=== PATIENT | female | born 1985 | race Hispanic/Latino ===

== ENCOUNTER 2018-01-03 17:49 | Emergency (ER) | payer SELFPAY ==
[2018-01-03] MEDS ORDERED: DICYCLOMINE HCL 10 MG CAP ONE (18:47)
[2018-01-03] MEDS ORDERED: FAMOTIDINE 20 MG/2 ML VIAL IV ONE (18:47)
[2018-01-03] MEDS ORDERED: ONDANSETRON 4 MG/2 ML VIAL ONE (18:47)
[2018-01-03] MEDS ORDERED: NA CHLORIDE 0.9% 1,000 ML ONE (18:48)
[2018-01-03 18:56] LABS: Absolute Lymphocytes (CBC) 0.5 K/uL (0.7-4.9); Absolute Monocytes 0.3 K/uL (0.1-1.3); Absolute Neutrophil 8.2 K/uL (1.8-8.0); Basophils % 0.2 % (0-1.3); Eosinophils % 0.2 % (0-4.4); Hematocrit 40.5 % (36.0-45.0); Lymphocytes % 5.5 % (15.3-44.8); MCH 31.1 pg (27.0-35.0); MCV 90.2 fL (80-100); MPV 7.9 fL (7.6-11.3); Monocytes % 3.8 % (3.3-12.3)
[2018-01-03 19:25] LABS: ALT/SGPT 63 U/L (12-78); AST/SGOT 40 U/L (15-37); Alkaline Phosphatase 113 U/L (45-117); BUN Blood Urea Nitrogen 15 mg/dL (7-18); Bicarbonate 27 mmol/L (21-32); Bilirubin Direct 0.3 mg/dL (0-0.2); Bilirubin Total 1.2 mg/dL (0.2-1.0); Glucose Level 103 mg/dL (74-106); Lipase 121 U/L (73-393); Protein, Total 7.9 g/dL (6.4-8.2); Sodium Level 138 mmol/L (136-145)
[2018-01-03 19:55] LABS: Urine Blood TRACE (NEG); Urine Glucose NEGATIVE (NEG); Urine Protein NEGATIVE (NEG); Urine Specific Gravity 1.025 (1.005-1.030)
[2018-01-03 20:41] LABS: Platelet Estimate ADEQ; Urine White Blood Cell Casts OK
[2018-01-03 20:42] LABS: Blood Morphology Comment NOT SEEN (NOT SEEN)
--- NOTE | 2018-01-03 21:34 | RAD REPORT ---
EXAM DESCRIPTION: US - Abdomen Exam Limited - 01/03/2018 9:15 pm CLINICAL HISTORY: Abdominal pain. COMPARISON: None. FINDINGS: The gallbladder wall is not thickened. A gallstone is not seen. The biliary tree is normal caliber. IMPRESSION: Unremarkable gallbladder ultrasound.
--- NOTE | 2018-01-03 21:51 | EDPHYS ---
Physician Documentation [facility] Name: Suni Rubin Age: 32 yrs Sex: Female : 1985 Arrival Date: 01/03/2018 Time: 17:51 Bed 30 Private MD: None, None ED Physician Grayson Mccloud HPI: 01/03 18:10 This 32 yrs old Female presents to ER via Ambulatory with complaints of cp Abdominal Pain, Vomiting/Diarrhea. 18:10 The patient presents with abdominal pain. Onset: The symptoms/episode began/occurred cp today. Associated signs and symptoms: Pertinent positives: nausea and vomiting, anorexia, diarrhea, fever, Pertinent negatives: blood in stools, constipation. 18:10 Severity of pain: in the emergency department the pain is unchanged despite home cp interventions. 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 - Social history:: Smoking status: Patient/guardian denies using tobacco. - Ebola Screening: : Patient negative for fever greater than or equal to 101.5 degrees Fahrenheit, and additional compatible Ebola Virus Disease symptoms Patient denies exposure to infectious person Patient denies travel to an Ebola-affected area in the 21 days before illness onset No symptoms or risks identified at this time. ROS: 18:25 Constitutional: Negative for body aches, chills, fever. cp 18:25 Eyes: Negative for injury, pain, redness, and discharge. cp 18:25 ENT: Negative for drainage from ear(s), ear pain, sore throat, difficulty swallowing, difficulty handling secretions. 18:25 Cardiovascular: Negative for chest pain, edema, palpitations. 18:25 Respiratory: Negative for cough, shortness of breath, wheezing. 18:25 Abdomen/GI: Positive for abdominal pain, nausea and vomiting, diarrhea, Negative for constipation, black/tarry stool, rectal bleeding. 18:25 Back: Negative for radiated pain. 18:25 : Negative for urinary symptoms. 18:25 All other systems are negative. Exam: 18:30 Constitutional: The patient appears in no acute distress, alert, awake, non-toxic, well cp developed, well nourished, uncomfortable. 18:30 Head/Face: Normocephalic, atraumatic. Eyes: Pupils equal round and reactive to light, cp extra-ocular motions intact. Lids and lashes normal. Conjunctiva and sclera are non-icteric and not injected. Cornea within normal limits. Periorbital areas with no swelling, redness, or edema. ENT: Nares patent. No nasal discharge, no septal abnormalities noted. Tympanic membranes are normal and external auditory canals are clear. Oropharynx with no redness, swelling, or masses, exudates, or evidence of obstruction, uvula midline. Mucous membranes moist. Chest/axilla: Normal chest wall appearance and motion. Nontender with no deformity. No lesions are appreciated. 18:30 Cardiovascular: Rate: normal, Rhythm: regular. 18:30 Respiratory: the patient does not display signs of respiratory distress, Respirations: normal, no use of accessory muscles, no retractions, no splinting, no tachypnea, Breath sounds: are clear throughout, no decreased breath sounds, no stridor, no wheezing. 18:30 Abdomen/GI: Inspection: abdomen appears normal, Bowel sounds: active, all quadrants, Palpation: soft, in all quadrants, mild abdominal tenderness, in all quadrants, rebound tenderness, is not appreciated, involuntary guarding, is not appreciated. 18:30 Back: pain, is absent, ROM is normal. 18:30 Skin: cellulitis, is not appreciated, no rash present. 18:30 Neuro: Orientation: to person, place \T\ time. Mentation: is normal, Cerebellar function: is grossly normal, Motor: is normal, Sensation: is normal. Vital Signs: 17:53 BP 104 / 68; Pulse 96; Resp 17; Temp 98.9; Pulse Ox 100% on R/A; Weight 83.91 kg; aj Height 5 ft. 5 in. (165.10 cm); 19:46 BP 102 / 47; Pulse 89 RA; Pulse Ox 100% on R/A; rv 20:22 BP 102 / 88; Pulse 79; Resp 18; Pulse Ox 100% on R/A; tl3 20:56 BP 112 / 73; rv 21:59 BP 124 / 70; Pulse 88; Pulse Ox 100% on R/A; rv 17:53 Body Mass Index 30.79 (83.91 kg, 165.10 cm) aj MDM: 17:57 Patient medically screened. cp 21:49 Data reviewed: vital signs, nurses notes, lab test result(s), radiologic studies, cp ultrasound. Response to treatment: the patient's symptoms have markedly improved after treatment, VSS. Patient reports nausea and pain improved. Will discharge to home for continued monitoring. 01/03 18:08 Order name: Basic Metabolic Panel; Complete Time: 20:35 cp 01/03 18:08 Order name: CBC with Diff; Complete Time: 20:44 cp 01/03 20:45 Interpretation: Normal except: NIMCO% 90.3; LYM% 5.5; NEUT A 8.2. cp 01/03 18:08 Order name: Creatinine for Radiology; Complete Time: 20:35 cp 01/03 18:08 Order name: Hepatic Function; Complete Time: 20:35 cp 01/03 18:08 Order name: Lipase; Complete Time: 20:35 cp 01/03 18:31 Order name: Urine Dipstick--Ancillary (enter results); Complete Time: 20:35 eb 01/03 18:08 Order name: IV Saline Lock; Complete Time: 18:38 cp 01/03 18:31 Order name: Urine --Ancillary (enter results); Complete Time: 20:35 eb 01/03 19:11 Order name: CBC Smear Scan; Complete Time: 20:44 EDMS 01/03 20:36 Order name: US Abdomen Limited: RUQ/epigastric area; Complete Time: 21:42 cp 01/03 18:08 Order name: Labs collected and sent; Complete Time: 18:38 cp 01/03 18:08 Order name: Urine Dipstick-Ancillary (obtain specimen); Complete Time: 18:37 cp 01/03 18:08 Order name: Urine Test (obtain specimen); Complete Time: 18:37 cp 01/03 21:42 Order name: PO challenge; Complete Time: 21:59 cp Administered Medications: 18:51 Drug: Pepcid 20 mg Route: IVP; Infused Over: 2 mins; Site: right antecubital; tl3 21:59 Follow up: Response: No adverse reaction rv 18:52 Drug: NS 0.9% 1000 ml Route: IV; Rate: 1 bolus; Site: right antecubital; Delivery: tl3 Primary tubing; 22:00 Follow up: IV Status: Completed infusion rv 18:52 Drug: Bentyl 20 mg Route: PO; tl3 22:00 Follow up: Response: No adverse reaction rv 18:52 Drug: Zofran 4 mg Route: IVP; Infused Over: 2 mins; Site: right antecubital; tl3 21:59 Follow up: Response: No adverse reaction rv Disposition: 01/03/18 21:50 Discharged to Home. Impression: Nausea and vomiting, Diarrhea, unspecified. - Condition is Stable. - Discharge Instructions: Food Choices to Help Relieve Diarrhea, Adult, Diarrhea, Adult, Nausea and Vomiting, Adult. - Prescriptions for Bentyl 20 mg Oral Tablet - take 1 tablet by ORAL route every 6 hours As needed; 20 tablet. Zofran 4 mg Oral Tablet - take 1 tablet by ORAL route every 12 hours As needed; 20 tablet. - Medication Reconciliation Form, Thank You Letter, Antibiotic Education, Prescription Opioid Use, Work release form form. - Follow up: Private Physician; When: 2 - 3 days; Reason: Recheck today's complaints. - Problem is new. - Symptoms have improved. Addendum: 01/09/2018 07:46 Co-signature as Attending Physician, Grayson Mccloud MD. r n Signatures: Dispatcher [employer] Andreea Madrigal RN Grayson Zamora MD MD rn Page, Corey, PA PA cp Humaira Dean RN RN tl3 Elias Carvajal RN RN rv Corrections: (The following items were deleted from the chart) 01/03 22:01 21:50 01/03/2018 21:50 Discharged to Home. Impression: Nausea and vomiting; Diarrhea, rv unspecified. Condition is Stable. Forms are Medication Reconciliation Form, Thank You Letter, Antibiotic Education, Prescription Opioid Use. Follow up: Private Physician; When: 2 - 3 days; Reason: Recheck today's complaints. Problem is new. Symptoms have improved. cp
--- NOTE | 2018-01-03 21:51 | ER ---
Nurse's Notes [facility] Name: Suni Rubin Age: 32 yrs Sex: Female : 1985 Arrival Date: 01/03/2018 Time: 17:51 Bed 30 Private MD: None, None Diagnosis: Nausea and vomiting;Diarrhea, unspecified Presentation: 01/03 17:52 Presenting complaint: Patient states: Vomiting x 6 episodes today and one episode of aj diarrhea. Patient reports LUQ cramping. Transition of care: patient was not received from another setting of care. Onset of symptoms was January 03, 2018. Risk Assessment: Do you want to hurt yourself or someone else? Patient reports no desire to harm self or others. Initial Sepsis Screen: Does the patient meet any 2 criteria? No. Patient's initial sepsis screen is negative. Does the patient have a suspected source of infection? No. Patient's initial sepsis screen is negative. Care prior to arrival: None. 17:52 Method Of Arrival: Ambulatory aj 17:52 Acuity: SABIHA 3 aj Triage Assessment: 17:53 General: Appears in no apparent distress. comfortable, Behavior is calm, cooperative, aj appropriate for age. Pain: Denies pain. Neuro: Level of Consciousness is awake, alert, obeys commands, Oriented to person, place, time, situation, Appropriate for age. Respiratory: Airway is patent Trachea midline Respiratory effort is even, unlabored, Respiratory pattern is regular, symmetrical. GI: Reports cramping, diarrhea, nausea, vomiting. Derm: Skin is intact, is healthy with good turgor, Skin is pink, warm \T\ dry. normal. 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 - Social history:: Smoking status: Patient/guardian denies using tobacco. - Ebola Screening: : Patient negative for fever greater than or equal to 101.5 degrees Fahrenheit, and additional compatible Ebola Virus Disease symptoms Patient denies exposure to infectious person Patient denies travel to an Ebola-affected area in the 21 days before illness onset No symptoms or risks identified at this time. Screenin:48 Abuse screen: Denies threats or abuse. Nutritional screening: No deficits noted. tl3 Tuberculosis screening: No symptoms or risk factors identified. Fall Risk None identified. Assessment: 18:48 General: Appears uncomfortable, well groomed, well developed, well nourished, Behavior tl3 is calm, cooperative, appropriate for age. Pain: Complains of pain in abdomen. Neuro: Level of Consciousness is awake, alert, obeys commands, Oriented to person, place, time, situation, Appropriate for age. Cardiovascular: Patient's skin is warm and dry. Respiratory: Airway is patent Respiratory effort is even, unlabored, Respiratory pattern is regular, symmetrical. GI: Bowel sounds present X 4 quads. hypoactive in right upper quadrant, left upper quadrant, right lower quadrant and left lower quadrant Abd is soft. GI: Reports nausea, vomiting, since this afternoon, about 6-7 times. : Urine is clear. EENT: No signs and/or symptoms were reported regarding the EENT system. Derm: No signs and/or symptoms reported regarding the dermatologic system. 19:47 Reassessment: Patient appears in no apparent distress at this time. Patient and/or rv family updated on plan of care and expected duration. Pain level reassessed. Patient is alert, oriented x 3, equal unlabored respirations, skin warm/dry/pink. 20:22 Reassessment: Patient appears in no apparent distress at this time. No changes from tl3 previously documented assessment. Patient and/or family updated on plan of care and expected duration. Pain level reassessed. Patient is alert, oriented x 3, equal unlabored respirations, skin warm/dry/pink. pt states that she is feeling better, no needs at this time. Vital Signs: 17:53 BP 104 / 68; Pulse 96; Resp 17; Temp 98.9; Pulse Ox 100% on R/A; Weight 83.91 kg; aj Height 5 ft. 5 in. (165.10 cm); 19:46 BP 102 / 47; Pulse 89 RA; Pulse Ox 100% on R/A; rv 20:22 BP 102 / 88; Pulse 79; Resp 18; Pulse Ox 100% on R/A; tl3 20:56 BP 112 / 73; rv 21:59 BP 124 / 70; Pulse 88; Pulse Ox 100% on R/A; rv 17:53 Body Mass Index 30.79 (83.91 kg, 165.10 cm) ED Course: 17:51 Patient arrived in ED. mr 17:51 None, None is Private Physician. mr 17:53 Triage completed. aj 17:53 Arm band placed on left wrist. Patient placed in an exam room, on a stretcher. aj 17:55 Jaquan Hopkins PA is PHCP. cp 17:55 Grayson Mccloud MD is Attending Physician. cp 18:37 Humaira Dean RN is Primary Nurse. tl3 18:38 Patient has correct armband on for positive identification. tl3 18:38 No provider procedures requiring assistance completed. Initial lab(s) drawn, by ED tl3 staff, sent to lab. Inserted saline lock: 20 gauge in right antecubital area, using aseptic technique. Blood collected. 21:13 Ultrasound completed. Patient tolerated well. sg3 21:14 US Abdomen Limited: RUQ/epigastric area In Process Unspecified. EDMS 22:01 IV discontinued, bleeding controlled, No redness/swelling at site. Pressure dressing rv applied. Administered Medications: 18:51 Drug: Pepcid 20 mg Route: IVP; Infused Over: 2 mins; Site: right antecubital; tl3 21:59 Follow up: Response: No adverse reaction rv 18:52 Drug: NS 0.9% 1000 ml Route: IV; Rate: 1 bolus; Site: right antecubital; Delivery: tl3 Primary tubing; 22:00 Follow up: IV Status: Completed infusion rv 18:52 Drug: Bentyl 20 mg Route: PO; tl3 22:00 Follow up: Response: No adverse reaction rv 18:52 Drug: Zofran 4 mg Route: IVP; Infused Over: 2 mins; Site: right antecubital; tl3 21:59 Follow up: Response: No adverse reaction rv Outcome: 21:50 Discharge ordered by MD. cp 22:00 Discharged to home ambulatory. rv 22:00 Condition: good 22:00 Discharge instructions given to patient, family, Instructed on discharge instructions, follow up and referral plans. medication usage, Demonstrated understanding of instructions, follow-up care, medications, Prescriptions given X 2. 22:01 Patient left the ED. rv Signatures: Dispatcher [employer] EDMS Andreea Aldridge RN RN aj Rivera, Mary mr Jaquan Hopkins PA PA cp Godinez, Keri sg3 Humaira Dean, RN RN tl3 Elias Carvajal, RN RN rv
== END 2018-01-03 22:01 | disposition home or self-care (01) ==
LOC: ER 17:49
DX: R19.7 Diarrhea, unspecified (principal)
CPT/HCPCS: 36415; 76705; 80048; 80076; 81003; 81025; 83690; 85025; 96361; 96374; 96375; 99284; J2405; J7030

== ENCOUNTER 2018-10-27 16:12 | Emergency (ER) | payer SELFPAY ==
[2018-10-27] MEDS ORDERED: DIPHENHYDRAMINE 25 MG TAB/CAP ONE (16:40)
[2018-10-27] MEDS ORDERED: predniSONE 20 MG TAB ONE (16:40)
[2018-10-27] MEDS ORDERED: FAMOTIDINE 20 MG TAB ONE (16:41)
--- NOTE | 2018-10-27 17:17 | ER ---
Nurse's Notes [facility] Name: Suni Rubin Age: 33 yrs Sex: Female : 1985 Arrival Date: 10/27/2018 Time: 16:14 Bed 19 Private MD: Diagnosis: Rash and other nonspecific skin eruption Presentation: 10/27 16:19 Presenting complaint: Patient states: "I have a rash on my chest, my knees, and my aa5 throat feels like it's closing since yesterday and the only different was that I took some B12 pills". Pt states "I've been vomiting and I have diarrhea:". Care prior to arrival: None. 16:19 Method Of Arrival: Ambulatory aa5 16:19 Acuity: SABIHA 3 aa5 16:19 Transition of care: patient was not received from another setting of care. Onset of aa5 symptoms was October 2018. Risk Assessment: Do you want to hurt yourself or someone else? Patient reports no desire to harm self or others. Initial Sepsis Screen: Does the patient meet any 2 criteria? No. Patient's initial sepsis screen is negative. Does the patient have a suspected source of infection? No. Patient's initial sepsis screen is negative. Triage Assessment: 16:25 General: Appears in no apparent distress. uncomfortable, Behavior is calm, cooperative, hj appropriate for age. Pain: Denies pain. 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 - Social history:: Smoking status: Patient/guardian denies using tobacco. - Ebola Screening: : No symptoms or risks identified at this time. Screenin:25 Abuse screen: Denies threats or abuse. Denies injuries from another. Nutritional hj screening: No deficits noted. Tuberculosis screening: No symptoms or risk factors identified. Fall Risk None identified. Assessment: 16:21 General: Appears in no apparent distress. uncomfortable, Behavior is calm, cooperative, hj appropriate for age. Pain: Denies pain. Neuro: Level of Consciousness is awake, alert, obeys commands, Oriented to person, place, time, situation, Appropriate for age. Cardiovascular: Capillary refill < 3 seconds Patient's skin is warm and dry. Respiratory: Reports shortness of breath. GI: No signs and/or symptoms were reported involving the gastrointestinal system. : No signs and/or symptoms were reported regarding the genitourinary system. EENT: No signs and/or symptoms were reported regarding the EENT system. Derm: Reports rash on the chest, back. Musculoskeletal: No signs and/or symptoms reported regarding the musculoskeletal system. 16:47 Reassessment: Patient and/or family updated on plan of care and expected duration. Pain hj level reassessed. Patient is alert, oriented x 3, equal unlabored respirations, skin warm/dry/pink. Patient states feeling better. 17:03 Reassessment: RECD REPORT FROM JOHNATHAN ORTEGA. 33YO HF P/W RASH. ALL CURRENT ORDERS bp COMPLETED. 17:24 Reassessment: PT D/C HOME AMBULATORY, DX WITH RASH. bp Vital Signs: 16:21 BP 138 / 74; Pulse 80; Resp 16 S; Temp 98.9(TE); Pulse Ox 100% on R/A; Weight 81.65 kg aa5 (R); Height 5 ft. 5 in. (165.10 cm) (R); Pain 8/10; 17:08 BP 105 / 58; Pulse 73; Resp 16; Pulse Ox 100% ; bp 16:21 Body Mass Index 29.95 (81.65 kg, 165.10 cm) aa5 ED Course: 16:14 Patient arrived in ED. mr 16:19 Arm band placed on. aa5 16:21 Triage completed. aa5 16:22 Villa Garcia, JORDAN is Primary Nurse. hj 16:26 Patient has correct armband on for positive identification. Bed in low position. Call hj light in reach. Side rails up X 1. Adult w/ patient. 16:30 Mike Palacios MD is Attending Physician. 17:24 No provider procedures requiring assistance completed. Patient did not have IV access bp during this emergency room visit. Administered Medications: 16:38 Drug: predniSONE 40 mg Route: PO; hj 16:44 Follow up: Response: No adverse reaction hj 16:38 Drug: Benadryl 25 mg Route: PO; hj 16:44 Follow up: Response: No adverse reaction hj 16:38 Drug: Pepcid 40 mg Route: PO; hj 16:44 Follow up: Response: No adverse reaction Outcome: 17:17 Discharge ordered by . [email or web address] 17:25 Discharged to home ambulatory. bp 17:25 Condition: stable 17:25 Discharge instructions given to patient, Instructed on discharge instructions, follow up and referral plans. medication usage, Demonstrated understanding of instructions, follow-up care, medications, Prescriptions given X 3. 17:25 Patient left the ED. bp Signatures: Lola Mauricio Audri, RN RN aa5 Villa Garcia RN RN Mike Palacios MD MD gs Peltier, Brian RN RN bp
--- NOTE | 2018-10-27 17:18 | EDPHYS ---
Physician Documentation [facility] Name: Suni Rubin Age: 33 yrs Sex: Female : 1985 Arrival Date: 10/27/2018 Time: 16:14 Bed 19 Private MD: ED Physician Mike Palacios HPI: 10/27 17:11 This 33 yrs old Female presents to ER via Ambulatory with complaints of gs Allergic Reaction. 17:11 The patient presents with itching, redness of skin. Onset: The symptoms/episode gs began/occurred yesterday. Associated signs and symptoms: Pertinent positives: vomiting, diarrhea, Pertinent negatives: fever. Possible causes: The patient has no known obvious cause for the symptoms. Severity of symptoms: At their worst the symptoms were moderate in the emergency department the symptoms have improved mildly. The patient has experienced similar episodes in the past, a few times. The patient has not recently seen a physician. 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 - Social history:: Smoking status: Patient/guardian denies using tobacco. - Ebola Screening: : No symptoms or risks identified at this time. ROS: 17:11 All other systems are negative. gs Exam: 17:11 Head/Face: Normocephalic, atraumatic. Eyes: Pupils equal round and reactive to light, gs extra-ocular motions intact. Lids and lashes normal. Conjunctiva and sclera are non-icteric and not injected. Cornea within normal limits. Periorbital areas with no swelling, redness, or edema. ENT: Nares patent. No nasal discharge, no septal abnormalities noted. Tympanic membranes are normal and external auditory canals are clear. Oropharynx with no redness, swelling, or masses, exudates, or evidence of obstruction, uvula midline. Mucous membranes moist. 17:11 Chest/axilla: Normal chest wall appearance and motion. Nontender with no deformity. No lesions are appreciated. Cardiovascular: Regular rate and rhythm with a normal S1 and S2. No gallops, murmurs, or rubs. Normal PMI, no JVD. No pulse deficits. Abdomen/GI: Soft, non-tender, with normal bowel sounds. No distension or tympany. No guarding or rebound. No evidence of tenderness throughout. Back: No spinal tenderness. No costovertebral tenderness. Full range of motion. 17:11 MS/ Extremity: Pulses equal, no cyanosis. Neurovascular intact. Full, normal range of motion. Neuro: Awake and alert, GCS 15, oriented to person, place, time, and situation. Cranial nerves II-XII grossly intact. Motor strength 5/5 in all extremities. Sensory grossly intact. Cerebellar exam normal. Normal gait. 17:11 Constitutional: The patient appears alert, awake. 17:11 Neck: External neck: swelling, is not appreciated. 17:11 Respiratory: the patient does not display signs of respiratory distress, Respirations: normal, Breath sounds: no acute changes, stridor, is not appreciated. 17:11 Skin: rash a mild rash is noted, rash can be described as erythematous, urticarial, and is diffusely located. Vital Signs: 16:21 BP 138 / 74; Pulse 80; Resp 16 S; Temp 98.9(TE); Pulse Ox 100% on R/A; Weight 81.65 kg aa5 (R); Height 5 ft. 5 in. (165.10 cm) (R); Pain 8/10; 17:08 BP 105 / 58; Pulse 73; Resp 16; Pulse Ox 100% ; bp 16:21 Body Mass Index 29.95 (81.65 kg, 165.10 cm) aa5 MDM: 16:37 Patient medically screened. 17:11 Differential diagnosis: anaphylaxis, angioedema, urticaria. Data reviewed: vital signs, nurses notes. Counseling: I had a detailed discussion with the patient and/or guardian regarding: the historical points, exam findings, and any diagnostic results supporting the discharge/admit diagnosis, the need for outpatient follow up. Response to treatment: the patient's symptoms have markedly improved after treatment, and as a result, I will discharge patient. Administered Medications: 16:38 Drug: predniSONE 40 mg Route: PO; 16:44 Follow up: Response: No adverse reaction hj 16:38 Drug: Benadryl 25 mg Route: PO; 16:44 Follow up: Response: No adverse reaction hj 16:38 Drug: Pepcid 40 mg Route: PO; hj 16:44 Follow up: Response: No adverse reaction Disposition: 10/27/18 17:17 Discharged to Home. Impression: Rash and other nonspecific skin eruption. - Condition is Stable. - Discharge Instructions: Allergies, Adult, Rash, [id number]. - Prescriptions for Pepcid 20 mg Oral Tablet - take 1 tablet by ORAL route every 12 hours for 10 days; 20 tablet. Prednisone 20 mg Oral Tablet - take 1 tablet by ORAL route once daily for 5 days; 5 tablet. Zyrtec 10 mg Oral Tablet - take 1 tablet by ORAL route once daily As needed; 20 tablet. - Medication Reconciliation Form, Thank You Letter, Antibiotic Education, Prescription Opioid Use form. - Follow up: Private Physician; When: 2 - 3 days; Reason: Re-evaluation by your physician. Signatures: Melina Brown RN RN aa5 Villa Garcia RN RN Mike Palacios MD MD Tato Liao RN RN bp Corrections: (The following items were deleted from the chart) 17:25 17:17 10/27/2018 17:17 Discharged to Home. Impression: Rash and other nonspecific skin bp eruption. Condition is Stable. Forms are Medication Reconciliation Form, Thank You Letter, Antibiotic Education, Prescription Opioid Use. Follow up: Private Physician; When: 2 - 3 days; Reason: Re-evaluation by your physician.
== END 2018-10-27 17:25 | disposition home or self-care (01) ==
LOC: ER 16:12
DX: R21 Rash and other nonspecific skin eruption (principal)
CPT/HCPCS: 99283; J7512